=== PATIENT | female | born 1955 | race Two or more races ===

== ENCOUNTER 2021-04-15 07:55 | Outpatient (CLI) | payer OTHER | END 2021-04-15 08:05 | disposition home or self-care (01) | LOC: TOM 07:55 | PROVIDERS: ATTEND Internal Medicine Gastroenterology | DX: K57.90 Diverticulosis of intestine, part unspecified, without perforation or abscess without bleeding (principal); K56.601 Complete intestinal obstruction, unspecified as to cause ==